=== PATIENT | female | born 1965 | race Caucasian/White ===

== ENCOUNTER 2017-01-11 11:23 | Day surgery (SDC) | payer BC ==
[2017-01-10 09:16] VITALS: BMI 27.6
[2017-01-11] MEDS ORDERED: Clindamycin/D5W 900 mg/50 ml Premix Bag ONE (12:02)
[2017-01-11] MEDS ORDERED: Midazolam HCl 2 mg/2 ml Vial ONE (12:32)
[2017-01-11] MEDS ORDERED: Fentanyl 100 MCG/2 ML VIAL ONE (12:32)
[2017-01-11] MEDS ORDERED: Ropivacaine 0.2% 550 ML 550 ML NERVE BLCK SCH (13:17)
[2017-01-11] MEDS ORDERED: Promethazine HCl 25 MG/ML VIAL IM PRN (13:17)
[2017-01-11] MEDS ORDERED: Ondansetron HCl/PF 4 MG/2 ML Vial IVP PRN (13:17)
[2017-01-11] MEDS ORDERED: Zolpidem Tartrate 5 MG TAB PO PRN (13:17)
[2017-01-11] MEDS ORDERED: HYDROcodone/Acetaminophen 5/325 mg Tablet PO PRN ×2 (13:17)
[2017-01-11] MEDS ORDERED: traMADol HCl 50 MG TAB PO PRN ×2 (13:17)
[2017-01-11] MEDS ORDERED: Ketorolac Tromethamine 30 MG/ML VIAL IVP PRN (13:17)
[2017-01-11] MEDS ORDERED: Fentanyl 100 MCG/2 ML VIAL IV PRN (13:18)
--- NOTE | 2017-01-11 15:31 | RAD ---
LEFT WRIST: Technique: Two fluoroscopic images presented. History: Internal fixation procedure. IMPRESSION: Plate and screws transfix the distal radius. POS: [facility]
[2017-01-11] MEDS ORDERED: Promethazine HCl 25 MG/ML VIAL ONE (15:48)
[2017-01-11] MEDS ORDERED: Propofol 200 MG/20 ML VIAL ONE (16:50)
[2017-01-11] MEDS ORDERED: Ketorolac Tromethamine 30 MG/ML VIAL ONE (16:50)
[2017-01-11] MEDS ORDERED: Ondansetron HCl/PF 4 MG/2 ML Vial ONE (16:50)
[2017-01-11] MEDS ORDERED: Lidocaine 1% PF 5 ML VIAL ONE (16:50)
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
== END 2017-01-12 17:00 | disposition home or self-care (01) ==
LOC: SDC 11:23
PROVIDERS: ATTEND Orthopaedic Surgery
PROC: 0PSJ04Z Reposition Left Radius with Internal Fixation Device, Open Approach (ICD-10-PCS; principal; 2017-01-12)
DX: S52.532A Colles' fracture of left radius, initial encounter for closed fracture (principal); V19.9XXA Pedal cyclist (driver) (passenger) injured in unspecified traffic accident, initial encounter; Z79.899 Other long term (current) drug therapy; Z88.0 Allergy status to penicillin; Z90.89 Acquired absence of other organs; Z98.890 Other specified postprocedural states
CPT/HCPCS: 76001; A4306; C1713; J1885; J2001; J2250; J2405; J2550; J2704; J2795; J3010; J3490